=== PATIENT | female | born 1940 | race Caucasian/White ===

== ENCOUNTER 2018-07-17 06:57 | Inpatient (IN) | payer OTHER ==
[2018-07-06 09:18] LABS: ABSOLUTE BASOPHILS 0.1 thou/uL (0.0-0.2); ABSOLUTE EOSINOPHILS 0.2 thou/uL (0.0-0.7); ABSOLUTE LYMPHOCYTES 1.1 thou/uL (0.8-5.3); ABSOLUTE MONOCYTES 0.5 thou/uL (0.0-1.2); ABSOLUTE NEUTROPHILS 5.9 thou/uL (1.6-8.1); BASOPHILS 0.9 %; HEMATOCRIT 41.9 % (37.0-47.0); HEMOGLOBIN 13.8 gm/dL (12.0-15.0); LYMPHOCYTES 14.1 %; MCH 29.5 pg (26.0-34.0); MCV 89.5 fL (80.0-100.0); MONOCYTES 6.7 %; MPV 7.7 fl. (7.2-11.1); NUCLEATED RBCS 0 /100WBC; PLATELET COUNT* 341 thou/uL (150-400); POLYS 76.3 %; RBC 4.68 mil/uL (4.20-5.00); RDW-CV 14.1 % (10.5-14.5); WBC 7.8 thou/uL (4.0-11.0)
[2018-07-06 09:34] LABS: APTT 29.1 Seconds (25.0-31.3); PROTIME 10.7 Seconds (9.20-11.50)
[2018-07-06 09:36] LABS: ALBUMIN 3.1 g/dL (3.4-5.0); CREATININE 1.2 mg/dL (0.6-1.3); POTASSIUM 3.5 mmol/L (3.5-5.1); TOTAL BILIRUBIN 0.4 mg/dL (<0.1-1.0); TOTAL PROTEIN 7.2 g/dL (6.4-8.2)
[2018-07-06 10:49] LABS: ESR (SEDRATE) 33 mm/hr (0-30)
--- NOTE | 2018-07-06 13:22 | EKG ---
[place] [address] ELECTROCARDIOGRAM REPORT Name: ROGELIO MALIN Room: [facility]#: [id number] Admission: Attend Phys: Jan Carter DO Discharge: Date of : 44 Report #: [id number] THIS REPORT FOR: //name// [facility] Test Date: 2018-07-06 Test Time: 09:18:43 Pat Name: ROGELIO MALIN Department: Room: Gender: F Gas Charger: : 1940 Requested By: Jan Carter Order Number: [id number] Reading MD: Hunter Magallanes Measurements Intervals [place] Rate: 77 P: 5 NE: 188 QRS: 18 QRSD: 87 T: 38 QT: 377 QTc: 427 Interpretive Statements Sinus rhythm Baseline wander in lead(s) V5 Compared to ECG 10/18/2007 06:20:13 Ventricular premature complex(es) no longer present Electronically Signed On 07-06-2018 13:22:23 [employer] by Hunter Magallanes [email or web address] <ELECTRONICALLY SIGNED> By: Hunter Magallanes MD, [facility] 07/06/18 1322 7 7 Hunter Magallanes MD, [facility] /EPI
[2018-07-06 23:07] LABS: GLYCOHEMOGLOBIN (HGB A1C) 5.7 % (4.8-5.6)
[~2018-07-17] VITALS: Ht 165.1 cm; Wt 86.2 kg
[~2018-07-17 06:57] MED LIST: ASPIR 8181 MG PO; ATORVASTATIN CA40 MG PO; FISH OIL 1,001000 M2 PO; HYDROCHLOROTHIA25 M2 PO; MAGOX 400400 MG PO; ORTHO-TABS1 EACH PO; VITAMINC500 PO
[2018-07-17 07:53] VITALS: BP 158/81
[2018-07-17 14:36] VITALS: BP 139/64
--- NOTE | 2018-07-17 15:22 | NUR ---
PATIENT ADMITTED TO ROOM 108 VIA BED S/P LT TKA AT 1436. ASSESSMENT COMPLETED. DENIES PAIN. BILATERAL CAMELIA HOSE IN PLACE, SCDS, AND ICE PACK TO LEFT KNEE. PATIENT'S NEURO CHECKS WNL TO LEFT FOOT. DENIES THE NEED FOR PAIN MEDS. ON RA. IV FLUIDS INITIATED. FAMILY AT BEDSIDE. MENU PROVIDED AND ORIENTED TO ROOM AND ENVIRONMENT. FALL PRECAUTIONS IN PLACE. HOURLY ROUNDING COMPLETED. CALL LIGHT WITHIN REACH. WILL CONTINUE WITH PLAN OF CARE.
--- NOTE | 2018-07-17 17:58 | NUR ---
PATIENT HAS BEEN A/O X 4 SINCE ADMIT. PATIENT RATING PAIN TO LEFT KNEE /10, DENYING THE NEED FOR PAIN MEDS. PATIENT CONTINUES ON IV FLUIDS AND ANTIBIOTICS INFUSING ORDERED. PATIENT UP TO BSC WITH SBA, GB, AND WALKER. PATIENT ON RA, CONTINUOUS PULSE OX IN PLACE, SATS UPPER 90s. BILATERAL TEDS AND SCDS IN PLACE. ICE PACK TO LEFT KNEE. PATIENT VISITING WITH FAMILY THIS EVENING. HOURLY ROUNDING COMPLETED. CALL LIGHT WITHIN REACH. WILL CONTINUE WITH PLAN OF CARE.
[2018-07-17 19:45] VITALS: BP 116/59
[2018-07-18 01:00] VITALS: BP 142/56
[2018-07-18 04:04] LABS: HEMATOCRIT 33.7 % (37.0-47.0); HEMOGLOBIN 10.9 gm/dL (12.0-15.0)
[2018-07-18 05:00] VITALS: BP 120/60
--- NOTE | 2018-07-18 05:31 | NUR ---
ASSUMED CARE OF PT AT 1900 PT ALERT AND ORIENTED X4 VS AND ASSESSMENT STABLE. PT DECLINED PAIN MEDS AT THE BEGINING OF THE SHIFT, ENCOURAGED PT TO TAKE MEDICATIONS BECAUSE THE BLOCK IS GOING TO WEAR OFF. PT TOOK PAIN MEDS ONCE ONERNIGHT WITH GOOD EFFECT. WILL CONTINUE PLAN OF CARE.
[2018-07-18 08:30] VITALS: BP 134/47; BP 160/73
--- NOTE | 2018-07-18 14:28 | OP ---
[facility] [address] [facility] [place] [address] OPERATIVE REPORT Name: KIMOROGELIO Room: [address] IN [facility]#: [id number] Admission: 07/17/18 Attend Phys: Rio Stanley Discharge: Date of : 42 Report #: [id number] THIS REPORT FOR: //name// CC: Adithya Townsend DICTATED BY: Siva Dickinson DO DATE OF SERVICE: 07/17/2018 PREOPERATIVE DIAGNOSIS: Left knee severe degenerative joint disease. POSTOPERATIVE DIAGNOSIS: Left knee severe degenerative joint disease. OPERATION: Left total knee arthroplasty. IMPLANTS: Biomet Vanguard posterior stabilized total knee implant with the following components: 1. A size 62.5 posterior stabilized femoral component. 2. A size 71 tibial baseplate, a size 10-mm thickness tibial bearing and a size 34-mm asymmetrical patella and 1 bag of Palacos bone cement. SURGEON: Jan Carter DO. NON PROFIT JOB TITLES: Siva Dickinson DO. SECOND NON PROFIT JOB TITLES: David Johnson DO. ANESTHESIA: Spinal with a posterior capsular injection. ESTIMATED BLOOD LOSS: 100 mL. FLUIDS: Crystalloids. DRAINS: None. SPECIMENS: None. COMPLICATIONS: None. CONDITION: Stable. DISPOSITION: PACU to home. PREOPERATIVE ANTIBIOTICS: Ancef 2 grams IV. [facility] [place] [address] OPERATIVE REPORT Name: ROGELIO MALIN Room: [address]#: [id number] Admission: 07/17/18 Attend Phys: Rio Stanley Discharge: Date of : 42 Report #: [id number] INDICATION FOR PROCEDURE: The patient is a pleasant 78-year-old female who had been followed in orthopedic clinic regarding her longstanding left knee pain. She has attempted and failed conservative treatment consisting of attempted weight loss, activity modifications, anti-inflammatories and steroid injections into the knee. Despite trying these things, have significant pain, which is limiting her activities; therefore, left total knee was recommended to the patient. Risks, indications, and treatment alternatives were reviewed and the patient was in agreement with this treatment plan. OPERATION IN DETAIL: The patient was identified in preoperative holding area where she identified the left knee as the operative side. This was marked. She was transferred to the operating suite and she was placed on the operating room table where spinal anesthesia was induced. The patient was then laid supine and a well-padded tourniquet was placed on the left proximal thigh and this was inflated to 295 mmHg for a total of 54 minutes throughout the procedure. The left lower extremity was then sterilely prepped and draped in the usual fashion. A timeout was then performed. Everyone in room was in agreement of the correct patient, operative side. She had been given preoperative antibiotics. Everyone in the room was in agreement. The midline incision was then marked out and a 20-blade scalpel was used to make a sharp dissection through the skin and subcutaneous tissue down to the level of the capsule. The new knife was then used to make our standard medial parapatellar incision. The infrapatellar fat pad and ACL were then excised at this time and the intramedullary femoral drill was introduced and the intramedullary femoral guide was inserted. This was pinned such that 10 mm of distal femur would be resected and this was confirmed with an radha wing. Distal femur cut was then made with oscillating saw and the femoral cutting jig was then removed and we then used external tibial guide to align our proximal tibial cuts. This was aligned in all planes and rotation. This was to take 8 mm from the high lateral side. This cutting block was then pinned into position. Our cut was made through the block making sure to protect our medial, lateral, and posterior structures. Once the cut was made, the 10-mm extension block was inserted in full extension and was found to give full extension and stable. However, the knee was found to be lax on the medial side and the medial collateral ligament was found to be intact; however, it was incompetent. Therefore, decision was made to proceed with the posterior stabilized with the PS plus tibial bearing. We then redirected our attention to the remaining distal femur cut and the distal femur was sized utilizing the anterior to posterior sizing guide. This was sized to appropriate size in the 3 degrees external rotation. Holes were drilled and the appropriate size 4-in-1 cutting block guide was impacted into position. The anterior, posterior and anterior and posterior chamfer cuts were then made sequentially through the guide. The guide was then removed and the excess bone was then removed as well as the excess ACL and PCL remnant as well as the excess meniscal remnants. The tibia was then sized to the appropriate size and a drop gloria was used to confirm that this was in appropriate rotation. The trial tibia was then impacted into position. I then used the box cut guide to make the femoral [place] [address] OPERATIVE REPORT Name: ROGELIO MALIN Room: [address] IN [facility].#: [id number] Admission: 07/17/18 Attend Phys: Rio Stanley Discharge: Date of : 42 Report #: [id number] the reaming system, the bone was removed and the trial femur was then impacted into position. A 10-mm spacer was then inserted and was found to give a full flexion and extension with a good stability with varus valgus stressing with the posterior stabilized plus tibial bearing components. Attention was then taken to the patella and this was found to have significant degenerative changes. Therefore, the decision was made to proceed with resurfacing and the Biomet reaming system was utilized. The patellar osteophytes were removed and the reaming system was used to the level of 14 mm. This gave a nice smooth surface. Patella was then sized to the appropriate size and the peg holes were drilled through the patellar guide. The patellar button was then placed and was found to have excellent tracking within the trochlear groove. Next, the trial implants were then removed and the posterior capsule was injected with her analgesic cocktail and the knee was thoroughly irrigated with pulsatile irrigation. The bone cement was mixed on the back table and this was applied to the backside of these components as well as within interstices of the bone. The tibial component was impacted into position followed by the femoral component. Excess bone cement was then removed. The patellar component was then placed in position and was clamped down. The 12-mm spacer was then trialed and was found to have once again excellent range of motion with a PS plus tibial bearing component. Therefore, decision was made to take this as our final component and the trial tibial bearing was replaced with the final component. Once again, it was taken through full range of motion and found to have excellent stability. The knee was then taken into full extension and once again, a thorough irrigation was performed followed by placement of vancomycin powder within the capsule and subcutaneous tissues. The knee was then placed in 90 degrees of flexion and the bone cement was allowed to dry while the closure was begun. We then closed the capsule layer with #1 Vicryl followed by the #1 running Stratafix suture. Once again, the knee was thoroughly irrigated. PRP was then injected into the capsule. The dermal layer was then closed with simple interrupted 2-0 Monocryl sutures in a buried fashion. This was followed by running 3-0 Stratafix suture on the skin. Skin glue was then placed over the incision and then, a sterile bandage with Mepilex was applied followed by CAMELIA jeffrey. The patient was awakened from her anesthetic and transferred to the PACU in stable condition. Sponge and needle counts were correct x 2. <ELECTRONICALLY SIGNED> By: J Luis Medina DO 07/18/18 1428 1617 1720Jan Carter DO /hilario
--- NOTE | 2018-07-18 15:00 | NUR ---
RECEIEVED ORDERS FOR OT. OT WILL DEFER TO P.T. AT THIS TIME. PLEASE WRITE NEW ORDERS IF NEEDED"
[2018-07-18 16:28] VITALS: BP 148/72
--- NOTE | 2018-07-18 17:01 | NUR ---
SPOKE WITH PT.AND DAUGHTER, BUCKY, AT BEDSIDE. PT.ALERT AND ORIENTED. STATED SHE LIVES WITH HER HUSBNAD AND HE WILL BE AVAILABLE TO ASSIST HER AT HOME. SHE HAS A WALKER IN HOSPITAL ROOM FROM HOME. DISCUSSED CPM MACHINE. SHE WOULD LIKE HH FOR FIRST 2 WEEKS AND THEN GO TO OUTPT.PHYSICAL THERAPY. WILL MAKE REFERRAL TO [facility]. PT.HOPES TO GO HOME TOMORROW.
[2018-07-18 17:15] VITALS: BP 148/72
--- NOTE | 2018-07-18 20:43 | NUR ---
I ASSUMED CARE OF THE PATIENT AT 0700. SHE IS ALERT AND ORIENTED X4 AND IS UP WITH SBA. BED IS IN THE LOW LOCKED POSITION AND CALL LIGHT IS IN REACH. HOURLY ROUNDING WAS COMPLETED AND PATIENT NEEDS ARE MET. PAIN IS MANAGED WITH PRN MEDS. SHE IS DOING EXTREMELY WELL WITH PT/OT AND IS EAGER TO GET HOME. WILL CONTINE TO MONITOR. DRESSING IS C/D/I.
[2018-07-19] VITALS: BP 187/74
[2018-07-19 04:10] VITALS: BP 173/71
[2018-07-19 04:24] LABS: HEMATOCRIT 33.2 % (37.0-47.0)
[2018-07-19 07:50] VITALS: BP 151/59
[2018-07-19] MEDS ORDERED: OXYCODONE HCL 55 MG PO (10:59)
[2018-07-19] MEDS ORDERED: ELIQUIS2.5 MG PO (10:59)
[2018-07-19 11:02] VITALS: BP 148/72
--- NOTE | 2018-07-19 12:29 | NUR ---
PT.DOING WELL TODAY AND WILL BE DISCHARGED THIS AFTERNOON. CM CALLED IN PRESCRIPTION FOR ELIQUIS, WRITTEN, TO [facility]. COPAY IS $21. WILL INFORM PT. FAXED REFERRAL AND DISCHARGE ORDERS TO [facility]. WILL DISCHARGE AFTER AFTERNOON THERAPY.
--- NOTE | 2018-07-19 14:43 | NUR ---
ASSUMED CARE OF PATIENT AT APPROX 0730. ALERT AND ORIENTED X4. ASSESSMENT COMPLETED AND CHARTED. VSS ON ROOM AIR. NO COMPLAINTS OF NAUSEA OR SOA. PAIN MANAGED WITH ORAL MEDICATION. PATIENT WORKED WELL WITH THERAPIES AND PROGRESSED TOWARD GOALS. DISCHARGED AT 1400 WITH ALL PERSONAL BELONGINGS, PRESCRIPTIONS AND DISCHARGE INFORMATION.
== END 2018-07-19 14:00 | disposition home health service (06) | DRG 470 ==
LOC: M.SUR 06:57 → M.ORTHSURG 11:36 → M.SUR 12:19 → M.ORTHSURG 07-19 14:00
PROVIDERS: Orthopaedic Surgery; ADMIT Internal Medicine
PROC: 0SRD0J9 Replacement of Left Knee Joint with Synthetic Substitute, Cemented, Open Approach (ICD-10-PCS; principal; 2018-07-17)
DX: M17.12 Unilateral primary osteoarthritis, left knee (principal); I10 Essential (primary) hypertension; Z96.651 Presence of right artificial knee joint; E78.5 Hyperlipidemia, unspecified; Z90.49 Acquired absence of other specified parts of digestive tract; Z79.899 Other long term (current) drug therapy

== ENCOUNTER 2019-02-16 10:24 | Day surgery (SDC) | payer OTHER ==
[~2019-02-16] VITALS: Ht 165.1 cm; Wt 86.2 kg
--- NOTE | ~2019-02-16 | H ---
[address] [address] HISTORY AND PHYSICAL Name: ROGELIO MALIN Room: [address] [place]#: [id number] Admission: 02/16/19 Attend Phys: Keesha Akins DO Discharge: 02/16/19 Date of : 42 Report #: [id number] THIS REPORT FOR: //name// For History and Physical please refer to the handwritten note in the patient's medical record. By: 0824Medical Records Staff TIANNA /DG
[~2019-02-16 10:24] MED LIST changes: +ELIQUIS2.5 MG PO; +LISINOPRIL-HCT1 EACH PO; +OXYCODONE HCL 55 MG PO
[2019-02-16 11:16] LABS: HEMOGLOBIN 11.9 gm/dL (12.0-15.0); MCH 29.7 pg (26.0-34.0); MCV 90.1 fL (80.0-100.0); MPV 7.8 fl. (7.2-11.1); RBC 3.99 mil/uL (4.20-5.00); RDW-CV 14.3 % (10.5-14.5); WBC 6.3 thou/uL (4.0-11.0)
[2019-02-16 11:31] LABS: ALBUMIN 3.4 g/dL (3.4-5.0); CALCIUM 9.6 mg/dL (8.5-10.1); CREATININE 1.3 mg/dL (0.6-1.3); POTASSIUM 3.5 mmol/L (3.5-5.1); TOTAL BILIRUBIN 0.7 mg/dL (<0.1-1.0); TOTAL PROTEIN 6.8 g/dL (6.4-8.2)
--- NOTE | 2019-02-16 12:42 | EKG ---
[place] [address] ELECTROCARDIOGRAM REPORT Name: ROGELIO MALIN Room: [address] M[address]R.#: [id number] Admission: 02/16/19 Attend Phys: Keesha Akins DO Discharge: Date of : 44 Report #: [id number] THIS REPORT FOR: //name// [facility] Test Date: 2019-02-16 Test Time: 10:46:37 Pat Name: ROGELIO MALIN Department: Room: [place] [address] Gender: F Bagging Machine Operator: RT : 1940 Requested By: Keesha Akins Order Number: [id number] Reading MD: Jung Ramsay Measurements Intervals [place] Rate: 72 P: 52 IN: 185 QRS: 12 QRSD: 86 T: 32 QT: 398 QTc: 436 Interpretive Statements Sinus rhythm Compared to ECG 07/06/2018 09:18:43 No significant changes Electronically Signed On 02-16-2019 12:42:38 CDT by Jung Ramasy [email or web address] <ELECTRONICALLY SIGNED> By: Hitesh Ramsay MD, [facility] 02/16/19 1242 45 Hitesh Ramsay MD, FACC /EPI
[2019-02-16] MEDS ORDERED: NORCO 5-325 TA1 EAC1 PO (15:05)
--- NOTE | 2019-02-21 07:38 | OP ---
[address] [address] OPERATIVE REPORT Name: SHAZIA MALINJOSE GUADALUPE Santamaria Room: [address] [place]#: [id number] Admission: 02/16/19 Attend Phys: Keesha Akins DO Discharge: 02/16/19 Date of : 42 Report #: [id number] THIS REPORT FOR: //name// CC: Keesha Haji Radford DATE OF SERVICE: 02/16/2019 PREOPERATIVE DIAGNOSES: 1. Right second rigid hammertoe. 2. Left second rigid hammertoe. 3. Right fifth metatarsal bunionette deformity. 4. Left fifth metatarsal bunionette deformity. POSTOPERATIVE DIAGNOSES: 1. Right second rigid hammertoe. 2. Left second rigid hammertoe. 3. Right fifth metatarsal bunionette deformity. 4. Left fifth metatarsal bunionette deformity. PROCEDURE: 1. Right second toe proximal interphalangeal arthrodesis. 2. Right second toe extensor tendon lengthening. 3. Right fifth metatarsal shaft percutaneous distal osteotomy. 4. Left second toe proximal interphalangeal arthrodesis. 5. Left second toe extensor tendon lengthening. 6. Left fifth metatarsal shaft percutaneous distal osteotomy. SURGEON: Keesha Akins DO AERODYNAMIC CONSULTANT: David Johnson DO ANESTHESIA: General. Approximately 10 mL of local in each foot of a mixture of 0.25% Marcaine and 1% lidocaine. ESTIMATED BLOOD LOSS: 10 mL. SPECIMENS: None. DRAINS: None. COMPLICATIONS: None. CONDITION: Stable. DISPOSITION: [place] [address] OPERATIVE REPORT Name: ROGELIO MALIN Room: [address] [place]#: [id number] Admission: 02/16/19 Attend Phys: Keesha Akins DO Discharge: 02/16/19 Date of : 42 Report #: [id number] ANTIBIOTICS: 2 grams Ancef IV preoperatively. TOURNIQUET TIME: Approximately 41 minutes at 250 mmHg on the right calf and approximately 35 minutes at 250 mmHg on the left calf. IMPLANTS: Arthrex 2.5 mm cannulated headless screws x 2. INDICATIONS: The patient is a very pleasant 78-year-old female who has had ongoing bilateral foot pain for the last several years. She has known bilateral rigid second hammertoe deformities as well as bilateral fifth bunionette deformities. She had failed conservative therapies with anti-inflammatories, shoe wear modification, activity modification. Despite these measures, continued to have significant pain to the bilateral second and fifth toes. Therefore, I did recommend bilateral second hammertoe correction and bilateral fifth percutaneous osteotomy. The benefits, risks, complications, and alternatives of this procedure were discussed with the patient in detail. These include but are not limited to bleeding, surgical site infection, neurovascular compromise, malunion, nonunion, continued pain, need for further surgery, DVT, PE as well as the inherent risks of anesthesia. The patient understands these risks and is agreeable to proceed. Consent was signed in the preoperative holding area and on the chart at the time of surgery operative site was marked. DESCRIPTION OF PROCEDURE: The patient was brought to the operating room and placed supine on the operating table. She was administered spinal anesthetic. Well-padded tourniquets were placed to the proximal portion of bilateral calves. Care was taken to avoid the course of the common peroneal nerve, leaving these approximately 4 fingerbreadths below the level of the fibular head. Next, bilateral lower extremities were sterilely prepped with ChloraPrep and draped freely in the usual fashion. A timeout was performed confirming correct patient, site and procedure. Surgical site markings were identified and all in the room were in agreement. Procedure began on the right. We exsanguinated the right lower extremity with an Esmarch and tourniquet was inflated to 250 mmHg. Starting with the second toe, a standard transverse incision was made directly overlying the PIP joint. This was carried through the extensor retinaculum to the level of the PIP joint. This was fully exposed with a knife. Then, utilizing a minimally invasive Arthrex minimally invasive ace system, the distal aspect of the proximal phalanx was removed. All cartilage had been removed and the bone decorticated at the joint surface. We then utilized the bur to decorticate the base of the middle phalanx and remove all cartilage. After appropriate joint preparation had taken place, we then utilized a K-wire from the 2.5 mm headless screw system and this was placed in retrograde and antegrade fashion across the PIP joint. X-rays confirmed appropriate reduction across the joint. Next, we utilized the appropriate drill bit and drilled across through the distal phalanx and across the PIP joint. We measured for an appropriate length screw and a 30 mm 2.5 mm headless [place] [address] OPERATIVE REPORT Name: ROGELIO MALIN Room: [address]#: [id number] Admission: 02/16/19 Attend Phys: Keesha Akins DO Discharge: 02/16/19 Date of : 42 Report #: [id number] across the PIP joint. X-rays confirmed appropriate positioning of the screw and the K-wire was removed. We performed extensive tendon lengthening of second toe utilizing a small 15 blade. The extensor digitorum brevis and longus were lengthened in Z-fashion. This was noted to allow the toe to drop down and lay in a normal position. We then localized the distal aspect of the fifth metatarsal shaft utilizing C-arm fluoroscopy. A small, less than 5 cm, incision was made directly on the lateral aspect of the fifth metatarsal shaft and again utilizing the Arthrex MIS ace, a distal oblique osteotomy was made from plantar distal to proximal dorsal. The distal aspect of the osteotomy was noted to freely move medially, thus reducing the bunionette deformity. X-rays confirmed appropriate reduction of the second toe PIP joint as well as appropriate positioning of the fifth metatarsal osteotomy. We then irrigated these wounds with normal saline and closed the wounds with 3-0 Vicryl suture. They were then dressed with Xeroform, 4 x 4s, Kerlix and Lukas bandage. Tourniquet was let down on the right at approximately 41 minutes. We then turned our attention to the left side, the left lower extremity was then exsanguinated with an Esmarch and tourniquet inflated to 250 mmHg. Next, again the second toe PIP joint was fully exposed utilizing a transverse incision directly overlying this joint. This was carried through the skin and the extensor retinaculum. The proximal phalanx was exposed utilizing sharp dissection. Then, utilizing the Arthrex MIS ace, the distal aspect of the proximal phalanx was removed, all cartilage was removed and the area was decorticated. We then utilized the ace as well to decorticate the base of the middle phalanx. After appropriate joint preparation had taken place, we then again used a K-wire from the 2.5 mm cannulated screw system and placed this in retrograde and antegrade fashion across the joint. X-rays confirmed appropriate reduction of the PIP joint and placement of the K-wire. We then overdrilled the K-wire with the appropriate drill bit and a 30 mm 2.5 mm headless cannulated screw was placed across the left PIP joint. X-rays confirmed appropriate joint position and hardware placement and the K-wire was removed. We then again performed extensor tendon lengthening to the second toe extensor digitorum longus and brevis. Incision was made with a 15 blade and these two tendons were lengthened in Z-type fashion. This again was noted to let the toe drop down appropriately into a normal position. We then localized the distal fifth metatarsal shaft again, utilizing C-arm fluoroscopy. Small incision was made with a 15 blade and the MIS ace was used to make an osteotomy in the distal fifth metatarsal shaft from plantar distal to proximal dorsal. These wounds were irrigated with saline and closed with 3-0 nylon suture. These were then dressed with Xeroform, 4 x 4s, Kerlix and Lukas bandage. Tourniquet on the left was let down at approximately 35 minutes. The patient tolerated the procedure well without complication and was transferred to PACU in stable condition. All needle and sponge counts were correct x 2 and I was present throughout all pertinent portions of the procedure. Approximately 10 [place] [address] OPERATIVE REPORT Name: ROGELIO MALIN Room: [address] [place]#: [id number] Admission: 02/16/19 Attend Phys: Keesha Akins DO Discharge: 02/16/19 Date of : 44 Report #: [id number] same mixture of local had been injected around the second and fifth toes on the left foot, prior to dressings being placed as well. <ELECTRONICALLY SIGNED> By: Keesha Akins DO 02/21/19 0738 1443 1511Apat Akins DO /nt
== END 2019-02-16 16:15 | disposition home or self-care (01) ==
LOC: M.SUR 10:24 → M.ORTHSURG 10:24 → M.TBA 10:24 → EDSTATUS 11:03 → M.ORTHSURG 11:57 → M.SUR 12:50 → M.TBA 16:15 → M.SUR 16:20
PROVIDERS: Orthopaedic Surgery
DX: M20.41 Other hammer toe(s) (acquired), right foot (principal); M20.42 Other hammer toe(s) (acquired), left foot; M21.622 Bunionette of left foot; M21.621 Bunionette of right foot; I10 Essential (primary) hypertension; E78.5 Hyperlipidemia, unspecified; Z98.890 Other specified postprocedural states; Z79.899 Other long term (current) drug therapy; Z79.82 Long term (current) use of aspirin; Z90.49 Acquired absence of other specified parts of digestive tract

== ENCOUNTER 2019-06-11 07:50 | Inpatient (IN) | payer OTHER ==
[2019-05-31 09:38] LABS: ABSOLUTE EOSINOPHILS 0.2 thou/uL (0.0-0.7); ABSOLUTE MONOCYTES 0.5 thou/uL (0.0-1.2); ABSOLUTE NEUTROPHILS 5.1 thou/uL (1.6-8.1); BASOPHILS 0.5 %; EOSINOPHILS 2.2 %; HEMOGLOBIN 12.9 gm/dL (12.0-15.0); MCH 29.4 pg (26.0-34.0); MCHC 33.1 g/dL (28.0-37.0); MCV 88.9 fL (80.0-100.0); MONOCYTES 7.7 %; MPV 7.4 fl. (7.2-11.1); NUCLEATED RBCS 0 /100WBC; PLATELET COUNT* 291 thou/uL (150-400); POLYS 74.6 %; RBC 4.38 mil/uL (4.20-5.00); WBC 6.9 thou/uL (4.0-11.0)
[2019-05-31 09:50] LABS: APTT 26.1 Seconds (25.0-31.3); PROTIME 10.3 Seconds (9.20-11.50)
[2019-05-31 09:55] LABS: ALBUMIN 3.6 g/dL (3.4-5.0); CALCIUM 9.5 mg/dL (8.5-10.1); CREATININE 1.4 mg/dL (0.6-1.3); POTASSIUM 3.9 mmol/L (3.5-5.1); TOTAL BILIRUBIN 0.6 mg/dL (<0.1-1.0); TOTAL PROTEIN 7.4 g/dL (6.4-8.2)
[2019-05-31 11:52] LABS: ESR (SEDRATE) 20 mm/hr (0-30)
[2019-06-01 02:07] LABS: GLYCOHEMOGLOBIN (HGB A1C) 5.5 % (4.8-5.6)
[~2019-06-11] VITALS: Ht 165.1 cm; Wt 81.6 kg
[~2019-06-11 07:50] MED LIST changes: +NORCO 5-325 TA1 EAC1 PO
[2019-06-11 13:00] VITALS: BP 160/67
[2019-06-11 18:39] VITALS: BP 153/71
--- NOTE | 2019-06-11 18:49 | NUR ---
PT ADMITTED TO UNIT POST OP SURGERY. PT EDUCATED ON USING CALL LIGHT WHEN NEEDING PAIN MEDS. PT ORIENTED TO ROOM. DINNER ORDERED FOR PATIENT. FALL RISK PRECAUTIONS IN PLACE. WILL CONTINUE TO MONITOR.
[2019-06-11 20:30] VITALS: BP 140/68
[2019-06-12] VITALS (7 sets, daily range): BP systolic 121–138; BP diastolic 60–67
[2019-06-12 03:41] LABS: HEMATOCRIT 32.2 % (37.0-47.0); HEMOGLOBIN 10.8 gm/dL (12.0-15.0)
--- NOTE | 2019-06-12 05:08 | NUR ---
ASSUMED CARE OF PT 06/11/19 AT APPROX 1930, PT A&OX4, PT ON ROOM AIR WITH CONTINUOUS PULSE OX, PT UP TO BS COMODE, ON-Q PUMP IN PLACE, PAIN MED REQUESTED AND GIVEN ORDERED, ASSESSMENTS AND HOURLY ROUNDINGS COMPLETED, WILL CONTINUE TO MONITOR.
[2019-06-12] MEDS ORDERED: TRAMADOL 50 MG50 MG PO (09:46)
[2019-06-12] MEDS ORDERED: OXYCODONE HCL 55 MG PO (09:46)
[2019-06-12] MEDS ORDERED: ELIQUIS5 MG PO (09:46)
[2019-06-12] MEDS ORDERED: ASPIRIN325 PO (10:52)
[2019-06-12] MEDS ORDERED: COLACE100 MG PO (10:52)
--- NOTE | 2019-06-12 11:04 | NUR ---
DC ORDERS RECEIVED. PT WANTS TO DC THIS AM. REFERRAL SENT TO [facility] PER PT REQUEST
--- NOTE | 2019-06-12 12:57 | NUR ---
PT GIVEN DISCHARGE INFORMATION GIVEN, PRESCRIPTIONS, AND CARE NOTES, IV REMOVED. PT LEFT VIA WHEELCHAIR WITH NURSING STAFF TO HOME WITH HOME HEALTH. ON Q PUMP IN PLACE. FALL RISK PRECAUTIONS IN PLACE. HOURLY ROUNDING COMPLETED.
--- NOTE | 2019-06-12 13:16 | NUR ---
RECIEVED O.T. EVAL AND TX ORDER. WILL DEFER TO P.T. AT THIS TIME. PLEASE ORDER FURTHER O.T. SERVICES IF NEEDED.
--- NOTE | 2019-06-13 13:43 | EKG ---
[place] [address] ELECTROCARDIOGRAM REPORT Name: ROGELIO MALIN Room: [address]#: [id number] Admission: 06/11/19 Attend Phys: Rio Stanley Discharge: 06/12/19 Date of : 44 Report #: [id number] THIS REPORT FOR: //name// [facility] Test Date: 2019-05-31 Test Time: 09:21:51 Pat Name: ROGELIO MALIN Department: Room: Gender: F Marketing Production Manager: : 1940 Requested By: Jan Carter Order Number: [id number] Armando MD: Daljit Omalley Measurements Intervals [place] Rate: 68 P: 22 ME: 184 QRS: 36 QRSD: 83 T: 58 QT: 404 QTc: 430 Interpretive Statements Sinus rhythm Compared to ECG 02/16/2019 10:46:37 No significant changes Electronically Signed On 05-31-2019 13:15:59 ELEMENTARY ESL TEACHER by Daljit Omalley [email or web address] <ELECTRONICALLY SIGNED> By: Daljit Omalley MD, [facility] 05/31/19 1315 D: [id number] 0 Daljit Omalley MD, FACC /EPI
--- NOTE | 2019-06-13 16:20 | OP ---
[address] [address] OPERATIVE REPORT Name: KIMOROGELIO K Room: [address]#: [id number] Admission: 06/11/19 Attend Phys: Rio Stanley Discharge: 06/12/19 Date of : 44 Report #: [id number] THIS REPORT FOR: //name// cc: Adithya Guzman MD, Arthur MD ~ THIS REPORT FOR: //name// CC: Adithya Townsend DICTATED BY: Omar Avelar DO DATE OF SERVICE: 06/11/2019 PREOPERATIVE DIAGNOSIS: Right knee progressive degenerative joint disease in the setting of a previous unicompartmental knee arthroplasty. POSTOPERATIVE DIAGNOSIS: Right knee progressive degenerative joint disease in the setting of a previous unicompartmental knee arthroplasty. PROCEDURE PERFORMED: Conversion of right unicompartmental knee arthroplasty to a total knee arthroplasty. SURGEON: Jan Carter DO ASSISTANTS: Carline Leyva PA-C; Omar Avelar DO; and Lokesh Hernandez DO ANESTHESIA: General, local, and peripheral nerve block by Anesthesia. ESTIMATED BLOOD LOSS: 175 mL. SPECIMENS REMOVED: None. COMPLICATIONS: None. IMPLANTS USED: [employer]omet Vanguard knee system with 62.5 PS femur, a 71 tibia baseplate, a 14 mm PS plus poly, and a 34 mm oval patella. FINDINGS: The patient had significant eburnated bone of both the patellofemoral compartment and lateral compartment. The unicompartmental knee arthroplasty was well fixed, not appeared to be loose. There were some surrounding osteophytes along the lateral aspect of the tibial baseplate as well as osteophytic lipping of the patellofemoral joint, the medial and lateral femur, as well as lateral tibial plateau. There was normal-appearing synovium. No signs of infection and no effusion, [place] [address] OPERATIVE REPORT Name: SHAZIA MALINJOSE GUADALUPE Santamaria Room: [address]#: [id number] Admission: 06/11/19 Attend Phys: Rio Stanley Discharge: 06/12/19 Date of : 44 Report #: [id number] INDICATIONS FOR PROCEDURE: The patient is a pleasant 79-year-old female who underwent a unicompartmental knee arthroplasty [place] [address] Carter. She did well until recently when she started to have some pain which was global of the knee and worse on the lateral side. X-rays were performed and demonstrated progression of her degenerative joint disease to involve both patellofemoral and lateral joint spaces. She attempted conservative treatment including activity modification, attempted weight loss, p.o. analgesia, anti-inflammatories, as well as home exercise for at least 6 months. These did not benefit and she continues to have progressive symptoms causing her be more sedentary and affecting her activities of daily living. We discussed with her the risks, benefits, complications, alternatives, and indications for surgery. She voiced understanding and wished to proceed. DESCRIPTION OF PROCEDURE: The patient was seen in the holding area. Correct operative site was marked. Verbal and written consents were obtained. She was transferred to the operative suite and placed supine on the operating table and given benefit of general anesthesia by the anesthesia team. She had a spinal placed preoperatively as well as peripheral nerve block to the right lower extremity. The right lower extremity was then prepped and draped in normal sterile fashion. A timeout was performed, all in attendance in agreement with correct operative site and procedure to be performed. A #20 blade scalpel was used to make an anterior longitudinal incision over the knee. This was taken down to the level of the extensor mechanism and capsule. We then used a new #10 blade scalpel to perform a medial parapatellar capsulotomy in order to expose the knee joint. Once this was performed, we used a towel clip to remove the oval bearing polyethylene from the medial side of the knee and then using graduated osteotomes, we removed the tibial baseplate leaving nearly all the bone behind and then curetted the remaining cement. A similar technique was used for removal of the femoral implant. With graduated osteotomes, we have loosened the implant and then removed it with oxygen. The cement was then curetted and removed with the saw during our preparation of the femur. We then used the drill for intramedullary guide. Our intramedullary guide was then placed and taking a 10 millimeter resection, we pinned the distal femoral cutting block in place utilizing the oscillating saw performed our resection of the distal femur. Excess bone osteophytes were removed with a rongeur, and we turned our attention to preparation of the proximal tibia. External tibial guide was placed and utilizing 10 mm off the high lateral side, we pinned the block in place and then elected to take an extra 2 mm and this block was held in place with bone screws and drilling was used to verify the resection. The oscillating saw was then used to perform resection of the proximal tibia. [place] and electrocautery used to excise the bone and osteophytes. We then used the AP sizer for the distal femur drawing out [place] line as well as the transepicondylar access. We verified proper external rotation of the 4-in-[address] [place] [address] OPERATIVE REPORT Name: KIMOROGELIO Santamaria Room: [address] [place] M.R.#: [id number] Admission: 06/11/19 Attend Phys: Rio Stanley Discharge: 06/12/19 Date of : 44 Report #: [id number] cutting block and then measured 62.5. A 4-in-1 cutting block was malleted in place, held with bone nails and resection was completed with the oscillating saw. Excess bone osteophytes were removed with a rongeur and the knee was taken into extension and a 10 mm block was used. We were found to have full extension and we did have a slightly more laxity on the medial side, but overall alignment of our cut was verified with drop gloria. We then pinned in place a trial tibial baseplate and our femur was prepared for PS. The reamer was utilized. Excess bone and soft tissue was removed with a rongeur and electrocautery, and then our trial PS femur was malleted into place and secured appropriately. We then inserted poly until appropriate size was found and balancing was verified. The patella was then resurfaced utilizing the Lisseth reamer system, and after verifying, appropriate bone was resected. A 34 mm oval patella guide was used to drill the peg holes and then a trial patella was placed. Knee was taken through range of motion and found to have excellent range of motion. We then removed the patella and femoral trials and further prepared the tibia with our reamer followed by the cruciate punch. All trial implants were then removed at this point and the knee was thoroughly irrigated with pulsatile lavage and local anesthetic was injected. The cement was mixed on the back table under vacuum suction and final implants were passed and cement was placed on the cut bony surfaces as well as the final implants. These were then malleted into place. Excess cement was removed with [place] and a 14 mm trial poly was used to compress while the cement hardened. Once the cement was hardened, we trialed the 14 mm with the PS plus-post and found that this had full range of motion and excellent stability in all planes. We elected to use this as our final poly. Final poly was inserted and held in place with the J-bar clip and secured in a normal fashion. Pulsatile lavage was once again thoroughly used within the joint. Topical 1 gram of vancomycin powder was then sprinkled throughout the joint and superficial tissues and the capsule was closed utilizing #1 Vicryl in figure-of-8 fashion, followed by a running #1 barbed suture. The skin was then closed utilizing a 2-0 Monocryl in inverted subcuticular fashion followed by running subcuticular 3-0 Stratafix and Dermabond skin glue. Sterile Mepilex dressing was placed over the incision and the patient was awoken from anesthesia and transferred to PACU in stable condition. All needle and scrub counts were correct at the end of the case x 2. I attest Dr. Carter was present through all critical decision making aspects of the case. <ELECTRONICALLY SIGNED> By: J Luis Medina DO 06/13/19 1620 [id number] 1948Jan Carter DO /hilario
== END 2019-06-12 12:58 | disposition home health service (06) | DRG 467 ==
LOC: M.PRE 07:50 → M.TBA 12:07 → M.PRE 14:54 → M.TBA 16:44 → M.ORTHSURG 16:44
PROVIDERS: Orthopaedic Surgery; ADMIT Internal Medicine
PROC: 0SRC0J9 Replacement of Right Knee Joint with Synthetic Substitute, Cemented, Open Approach (ICD-10-PCS; principal; 2019-06-11)
PROC: 3E0T3BZ Introduction of Anesthetic Agent into Peripheral Nerves and Plexi, Percutaneous Approach (ICD-10-PCS; 2019-06-11)
PROC: 0SPC0LZ Removal of Medial Unicondylar Synthetic Substitute from Right Knee Joint, Open Approach (ICD-10-PCS; 2019-06-11)
DX: T84.092A Other mechanical complication of internal right knee prosthesis, initial encounter (principal); D62 Acute posthemorrhagic anemia; M17.11 Unilateral primary osteoarthritis, right knee; I10 Essential (primary) hypertension; E78.5 Hyperlipidemia, unspecified; Z96.652 Presence of left artificial knee joint; Z90.49 Acquired absence of other specified parts of digestive tract; Z79.899 Other long term (current) drug therapy; Z72.89 Other problems related to lifestyle; Y92.89 Other specified places as the place of occurrence of the external cause; Y83.1 Surgical operation with implant of artificial internal device as the cause of abnormal reaction of the patient, or of later complication, without mention of misadventure at the time of the procedure